=== PATIENT | female | born 1960 | race African-American/Black ===

== ENCOUNTER 2017-08-14 12:53 | Emergency (ER) | payer MEDICAID, OTHER ==
[~2017-08-14] VITALS: Ht 174 cm; Wt 81.6 kg
[~2017-08-14 12:53] MED LIST: ACETAMINOPHEN-1 EAC1 ORAL; ALBUTEROL SULF8.5 GM INH; ATORVASTATIN CA20 MG ORAL; BENAZEPRIL HCL10 MG PO; BENAZEPRIL HCL20 MG ORAL; CIPROFLOXACIN500 M2 ORAL; CLARITIN-D 241 EACH PO; CORTISPORIN EAR10 ML OTIC; COUGH SYRUP DM237 ML PO; CYCLOBENZAPRINE10 MG ORAL; DIFLUCAN100 MG ORAL; FLAGYL500 MG ORAL; FLONASE1 SPRAYS NASAL; IBUPROFEN600 MG PO; METRONIDAZOLE500 MG ORAL; MOTRIN IB200 MG PO; NORCO 5-325 TA1 EACH PO; PROAIR HFA8.5 GM INH; TAMIFLU75 MG ORAL; ZETIA10 MG PO; ZITHROMAX250 MG ORAL; ZYRTEC10 MG ORAL
[2017-08-14 13:10] VITALS: BP 175/92
--- NOTE | 2017-08-14 13:12 | Emergency Room Report ---
History of Present Illness General Chief Complaint: Abdominal Pain Source: Patient Present Illness HPI Patient presents with abdominal pain that's been colicky in nature since . She found that Pepto-Bismol works well to control the pain. Last time the pain was severe was this morning. It has been waking her up. It's mainly midline epigastric and radiates down to the lower part of the abdomen. She is status post hysterectomy. She denies any dysuria. There is no diarrhea. She had normal BM earlier. This started after eating spicy [place] food. More nausea than any vomiting. She has migraines and is very sensitive to medication. She states she has tylenol #3 but has not taken them for this pain. She has a mild headache at this time. She is on preventative medication for the migraines. She's also been treated for gastritis in the past. Allergies: Coded Allergies: MORPHINE (Verified Allergy, Severe, 05/13/15) PENICILLINS (Verified Allergy, Severe, BURNING, RASH, BURNING SKIN, ) AMPICILLIN (Verified Allergy, Intermediate, UTACARIA, RASH AND BURNING, ) NAPROXEN (Verified Allergy, Unknown, EDEMA, 03/01/15) DICLOFENAC SODIUM (Verified Adverse Reaction, Unknown, EDEMA, 03/01/15) OXYCODONE HCL (Verified Adverse Reaction, Unknown, TACHYCARDIA, 03/01/15) TRAMADOL (Verified Adverse Reaction, Unknown, HEADACHE, 03/01/15) Patient History Past Medical History: see triage record Past Surgical History: other - fx femur, breast augmentation Social History: Denies: smoking, alcohol use Social History Narrative at home Last Menstrual Period: n/a Reviewed Nursing Documentation: PMH: Agreed; PSxH: Agreed Nursing Documentation-PMH Past Medical History: No History, Except For Hx Cardiac Problems: Yes - HYPERCHOLESTEROLEMIA Hx Hypertension: Yes - arthritis, degenerative disease, right femur fx 1999 Hx Asthma: Yes Hx Cerebrovascular Accident: No - HYSTERECTOMY, BREAST AUGMENTATION Review of Systems All Other Systems: negative except mentioned in HPI Physical Exam Vital Signs Date Time Temp Pulse Resp B/P (MAP) Pulse Ox O2 Delivery O2 Flow Rate FiO2 08/14/17 12:56 98.0 76 18 175/92 96 Room Air 98.1 Sp02 EP Interpretation: reviewed, normal General Appearance: well appearing, no apparent distress, GCS 15 Head: normocephalic, atraumatic Eyes: bilateral eye normal inspection, bilateral eye PERRL, bilateral eye EOMI ENT: moist mucus membranes Neck: supple Respiratory: lungs clear, normal breath sounds Cardiovascular #1: regular rate, rhythm Cardiovascular #2: 2+ radial (R) Gastrointestinal: normal inspection, no mass, non-distended, no guarding, no rebound, tenderness - epigastric more than rest of abdomen Genitourinary: no CVA tenderness Musculoskeletal: back normal, gait/station normal, normal range of motion Neurologic: alert, oriented x3, grossly normal Psychiatric: mood/affect normal Skin: normal inspection, warm/dry Medical Decision Making Diagnostic Impression: Primary Impression: Abdominal pain Qualified Codes: R10.9 - Unspecified abdominal pain ER Course Patient presents with 4 days of intermittent abdominal pain - more epigastric but also radiating to lower abdomen. Ddx; gastroenteritis, gastritis, GERD, diverticulitis, UTI, pancreatitis amongst others. No diarrhea is against GItis. Evaluation with labs. Treatment with IV hydration, reglan, benadryla and pepcid. Pain does not sound cardiac and patient with few cardiac risk factors. Labs with normal WBC, H/H, CMP and lipase. Exam improved. Eating here. Discussed observation at home and treatment plan. Patient understands. Patient stable for outpatient observation and treatment. Laboratory Tests Test 08/14/17 13:45 White Blood Count 5.3 K/UL (4.8-10.8) Red Blood Count 4.70 M/UL (4.20-5.40) Hemoglobin 13.5 G/DL (12.0-16.0) Hematocrit 41.6 % (37.0-47.0) Mean Corpuscular Volume 89 FL (80-99) Mean Corpuscular Hemoglobin 28.6 PG (27.0-31.0) Mean Corpuscular Hemoglobin Concent 32.3 G/DL (32.0-36.0) Red Cell Distribution Width 12.5 % (11.6-14.8) Platelet Count 302 K/UL (150-450) Mean Platelet Volume 9.1 FL (6.5-10.1) Neutrophils (%) (Auto) 44.6 % (45.0-75.0) L Lymphocytes (%) (Auto) 45.9 % (20.0-45.0) H Monocytes (%) (Auto) 5.9 % (1.0-10.0) Eosinophils (%) (Auto) 1.7 % (0.0-3.0) Basophils (%) (Auto) 1.9 % (0.0-2.0) Urine Color Yellow Urine Appearance Clear Urine pH 6 (4.5-8.0) Urine Specific Sanderson 1.015 (1.005-1.035) Urine Protein Negative (NEGATIVE) Urine Glucose (UA) Negative (NEGATIVE) Urine Ketones Negative (NEGATIVE) Urine Occult Blood 1+ (NEGATIVE) H Urine Nitrite Negative (NEGATIVE) Urine Bilirubin Negative (NEGATIVE) Urine Urobilinogen Normal MG/DL (0.0-1.0) Urine Leukocyte Esterase Negative (NEGATIVE) Urine RBC 0-2 /HPF (0 - 2) Urine WBC 0-2 /HPF (0 - 2) Urine Squamous Epithelial Cells Few /LPF (NONE/OCC) Urine Bacteria Occasional /HPF (NONE) Sodium Level 139 MMOL/L (136-145) Potassium Level 3.8 MMOL/L (3.5-5.1) Chloride Level 107 MMOL/L (98-107) Carbon Dioxide Level 22 MMOL/L (21-32) Anion Gap 10 mmol/L (5-15) Blood Urea Nitrogen 11 mg/dL (7-18) Creatinine 0.9 MG/DL (0.55-1.30) Estimate Glomerular Filtration Rate > 60 mL/min (>60) Glucose Level 95 MG/DL (74-106) Calcium Level 9.6 MG/DL (8.5-10.1) Total Bilirubin 0.4 MG/DL (0.2-1.0) Aspartate Amino Transferase (AST) 13 U/L (15-37) L Alanine Aminotransferase (ALT) 17 U/L (12-78) Alkaline Phosphatase 52 U/L (46-116) Total Protein 7.8 G/DL (6.4-8.2) Albumin 3.7 G/DL (3.4-5.0) Globulin 4.1 g/dL Albumin/Globulin Ratio 0.9 (1.0-2.7) L Lipase 124 U/L (73-393) Last Vital Signs Date Time Temp Pulse Resp B/P (MAP) Pulse Ox O2 Delivery O2 Flow Rate FiO2 08/14/17 16:19 98.1 71 15 153/81 98 Room Air 98.1 Status: improved Disposition: HOME, SELF-CARE Condition: Improved Scripts Famotidine (PEPCID AC) 20 Mg Tablet 20 MG PO DAILY, #20 TAB Prov: Sotero Epperson M.D. 08/14/17 Ondansetron Odt* (ZOFRAN ODT*) 4 Mg Tab.rapdis 4 MG SL EVERY 8 HOURS, #6 TAB 1 Refill Prov: Sotero Epperson M.D. 08/14/17 Sotero Epperson M.D. Aug 14, 2017 13:12
[2017-08-14] MEDS ORDERED: DiphenhydrAMINE 50mg/ml Inj IVP ONE (13:15)
[2017-08-14] MEDS ORDERED: Metoclopramide 10mg/2ml Inj IVP ONE (13:15)
[2017-08-14 14:00] LABS: BASOPHILS % (AUTO) 1.9 % (0.0-2.0); EOSINOPHILS % (AUTO) 1.7 % (0.0-3.0); HEMATOCRIT 41.6 % (37.0-47.0); HEMOGLOBIN 13.5 G/DL (12.0-16.0); LYMPHOCYTES % (AUTO) 45.9 % (20.0-45.0); MEAN CORPUSCULAR VOLUME 89 FL (80-99); MONOCYTES % (AUTO) 5.9 % (1.0-10.0); NEUTROPHILS % (AUTO) 44.6 % (45.0-75.0); PLATELET COUNT 302 K/UL (150-450); RED CELL DISTRIBUTION WIDTH 12.5 % (11.6-14.8); WHITE BLOOD COUNT 5.3 K/UL (4.8-10.8)
[2017-08-14 14:02] LABS: APPEARANCE,URINE CLEAR; BILIRUBIN, URINE NEGATIVE (NEGATIVE); GLUCOSE, URINE (UA) NEGATIVE (NEGATIVE); KETONES,URINE NEGATIVE (NEGATIVE); LEUKOCYTE ESTERASE ,URINE NEGATIVE (NEGATIVE); NITRITE,URINE NEGATIVE (NEGATIVE); PH,URINE 6 (4.5-8.0); PROTEIN,URINE NEGATIVE (NEGATIVE); UROBILINOGEN,URINE NORMAL MG/DL (0.0-1.0)
[2017-08-14 14:09] LABS: ANION GAP 10 mmol/L (5-15); BLOOD UREA NITROGEN 11 mg/dL (7-18); CALCIUM 9.6 MG/DL (8.5-10.1); CARBON DIOXIDE 22 MMOL/L (21-32); CHLORIDE 107 MMOL/L (98-107); CREATININE 0.9 MG/DL (0.55-1.30); POTASSIUM 3.8 MMOL/L (3.5-5.1); SODIUM 139 MMOL/L (136-145)
[2017-08-14 14:13] LABS: COLOR,URINE YELLOW
[2017-08-14 14:14] LABS: ALANINE AMINOTRANSFERASE 17 U/L (12-78); ALBUMIN 3.7 G/DL (3.4-5.0); ALBUMIN/GLOBULIN RATIO 0.9 (1.0-2.7); ALKALINE PHOSPHATASE 52 U/L (46-116); ASPARTATE AMINO TRANSFERASE 13 U/L (15-37); BILIRUBIN,TOTAL 0.4 MG/DL (0.2-1.0)
[2017-08-14] MEDS ORDERED: Tylenol #3 tab (300mg/30mg) ORAL ONE (14:30)
[2017-08-14] MEDS ORDERED: PEPCID AC20 M2 PO (16:03)
[2017-08-14] MEDS ORDERED: ONDANSETRON ODT4 MG SL (16:03)
[2017-08-14 16:19] VITALS: BP 153/81
== END 2017-08-14 16:19 | disposition home or self-care (01) ==
LOC: EMR 15:27
DX: R10.9 Unspecified abdominal pain (principal); Z90.710 Acquired absence of both cervix and uterus; Z88.6 Allergy status to analgesic agent; Z88.0 Allergy status to penicillin; Z88.8 Allergy status to other drugs, medicaments and biological substances; E78.00 Pure hypercholesterolemia, unspecified; M19.90 Unspecified osteoarthritis, unspecified site
CPT/HCPCS: 36415; 80053; 81003; 83690; 85025; 96360; 96374; 96375; 99284; J1200; J2765; S0028

== ENCOUNTER 2017-09-09 14:28 | Emergency (ER) | payer MEDICAID ==
[~2017-09-09] VITALS: Ht 172.7 cm; Wt 81.6 kg
[~2017-09-09 14:28] MED LIST changes: +ONDANSETRON ODT4 MG SL; +PEPCID AC20 M2 PO
[2017-09-09] MEDS ORDERED: MONTELUKAST SOD10 MG ORAL (14:54)
[2017-09-09] MEDS ORDERED: ACETAMINOPHEN-1 EAC1 ORAL (14:55)
[2017-09-09] MEDS ORDERED: PREMARIN0.625 MG ORAL (14:55)
[2017-09-09 14:56] VITALS: BP 148/83
[2017-09-09] MEDS ORDERED: LIDOCAINE700 M1 TP (15:12)
[2017-09-09 15:20] VITALS: BP 148/83
--- NOTE | 2017-09-09 15:23 | Emergency Room Report ---
History of Present Illness General Chief Complaint: General Complaint Source: Patient, Medical Record Present Illness HPI Patient's 57-year-old female who presents after increased right-sided chest discomfort. The patient reports having worsening pain to the right side of her chest. Initially this had been bilateral pain which began after working out with weights. The patient states that she been having increased sharp pain which was worse with movements. She reports having prior history of arthritis as well as prior diagnosis of rheumatism. She reports having negative mammograms in the past. Allergies: Coded Allergies: MORPHINE (Verified Allergy, Severe, 05/13/15) PENICILLINS (Verified Allergy, Severe, BURNING, RASH, BURNING SKIN, ) AMPICILLIN (Verified Allergy, Intermediate, UTACARIA, RASH AND BURNING, ) NAPROXEN (Verified Allergy, Unknown, EDEMA, 03/01/15) DICLOFENAC SODIUM (Verified Adverse Reaction, Unknown, EDEMA, 03/01/15) OXYCODONE HCL (Verified Adverse Reaction, Unknown, TACHYCARDIA, 03/01/15) TRAMADOL (Verified Adverse Reaction, Unknown, HEADACHE, 03/01/15) Patient History Past Medical History: see triage record Last Menstrual Period: partial hystrectomy Reviewed Nursing Documentation: PMH: Agreed; PSxH: Agreed Nursing Documentation-PMH Past Medical History: No History, Except For Hx Cardiac Problems: Yes - HYPERCHOLESTEROLEMIA Hx Hypertension: Yes - arthritis, degenerative disease, right femur fx 1999 Hx Pacemaker: No Hx Asthma: Yes Hx COPD: No Hx Diabetes: No Hx Cancer: No Hx Gastrointestinal Problems: No Hx Dialysis: No History Of Psychiatric Problem: No Hx Neurological Problems: No Hx Cerebrovascular Accident: No - HYSTERECTOMY Hx Seizures: No Review of Systems All Other Systems: negative except mentioned in HPI Physical Exam Vital Signs Date Time Temp Pulse Resp B/P (MAP) Pulse Ox O2 Delivery O2 Flow Rate FiO2 09/09/17 14:47 98.1 70 16 148/83 97 Room Air 98.1 Sp02 EP Interpretation: reviewed, normal General Appearance: normal inspection, well appearing, no apparent distress, alert, GCS 15, non-toxic Head: atraumatic ENT: normal ENT inspection, hearing grossly normal, normal voice Neck: normal inspection, full range of motion, supple, no bony tend Respiratory: normal inspection, lungs clear, normal breath sounds, no respiratory distress, no retraction, no wheezing Cardiovascular #1: regular rate, rhythm, no edema, other - left chest wall tenderness. Gastrointestinal: normal inspection, normal bowel sounds, non tender, soft, no guarding, no hernia Genitourinary: no CVA tenderness Musculoskeletal: normal inspection, back normal, normal range of motion Neurologic: normal inspection, alert, responsive, speech normal Psychiatric: normal inspection, judgement/insight normal, mood/affect normal Skin: normal inspection, normal color, no rash Medical Decision Making Diagnostic Impression: Primary Impression: Chest wall pain ER Course Patient presented for chest pain. Differential diagnosis included but was not limited to acute coronary syndrome, pulmonary embolism, pneumonia, aortic dissection, shingles, pneumothorax, aortic dissection, esophageal rupture, pericarditis. Patient has a benign exam and does not appear to require any further imaging or laboratory testing at this time. The patient appears to have the chest wall pain. The patient was given lidocaine patch. The patient for pain medications. The patient denies any recent leg pain or swelling. The patient is advised to return if she began having worsening of symptoms fever or other concerns. The patient is advised to follow up with primary care doctor in 1-2 days. Patient is advised to return if any worsening condition or if any changes in status that are concerning. This report is dictated with [employer] power superintendent software which may occasionally lead to discrepancies related to use of this software. Last Vital Signs Date Time Temp Pulse Resp B/P (MAP) Pulse Ox O2 Delivery O2 Flow Rate FiO2 09/09/17 14:56 98.1 70 16 148/83 100 Room Air 98.1 Status: improved Disposition: HOME, SELF-CARE Condition: Stable Scripts Lidocaine (Lidocaine) 1 Each Adh..patch 5 % TP DAILY for pain, #30 PATCH Prov: Ramo Biggs MD 09/09/17 Patient Instructions: Chest Wall Pain, [id number] Ramo Biggs MD Sep 09, 2017 15:23
== END 2017-09-09 15:20 | disposition home or self-care (01) ==
LOC: EMR 14:30
DX: R07.89 Other chest pain (principal); Z90.710 Acquired absence of both cervix and uterus; Z88.6 Allergy status to analgesic agent; E78.00 Pure hypercholesterolemia, unspecified; I10 Essential (primary) hypertension; J45.909 Unspecified asthma, uncomplicated; M19.90 Unspecified osteoarthritis, unspecified site
CPT/HCPCS: 99283

== ENCOUNTER 2017-12-13 10:20 | Emergency (ER) | payer MEDICAID ==
[~2017-12-13] VITALS: Ht 167.6 cm; Wt 81.6 kg
[~2017-12-13 10:20] MED LIST changes: +LIDOCAINE700 M1 TP; +MONTELUKAST SOD10 MG ORAL; +PREMARIN0.625 MG ORAL
[2017-12-13 10:40] VITALS: BP 157/89
[2017-12-13] MEDS ORDERED: Fluorescein Strips LEFT EYE ONE (10:45)
[2017-12-13] MEDS ORDERED: Tetracaine 0.5% Opth 4ml Soln LEFT EYE ONE (10:45)
[2017-12-13] MEDS ORDERED: OCUFLOX5 ML LEFT EYE (11:21)
[2017-12-13 11:29] VITALS: BP 157/89
--- NOTE | 2017-12-14 07:07 | Emergency Room Report ---
History of Present Illness General Chief Complaint: Eye Problems Source: Patient Present Illness HPI 57-year-old female presents to ED complaining of left eye injury. States that when she was combing her hair this morning she scratched her left eye with her thumb. Notes tearing and pain to her left eye. Dull, 8 out of 10, nonradiating. Denies diplopia or blurry vision. Feels like there is something in her eye. Denies any other injuries. No other aggravating relieving factors. Denies any other associated symptoms Allergies: Coded Allergies: MORPHINE (Verified Allergy, Severe, 05/13/15) PENICILLINS (Verified Allergy, Severe, BURNING, RASH, BURNING SKIN, ) AMPICILLIN (Verified Allergy, Intermediate, UTACARIA, RASH AND BURNING, ) NAPROXEN (Verified Allergy, Unknown, EDEMA, 03/01/15) DICLOFENAC SODIUM (Verified Adverse Reaction, Unknown, EDEMA, 03/01/15) OXYCODONE HCL (Verified Adverse Reaction, Unknown, TACHYCARDIA, 03/01/15) TRAMADOL (Verified Adverse Reaction, Unknown, HEADACHE, 03/01/15) Patient History Past Medical History: asthma Past Surgical History: none, other - femur fx Pertinent Family History: none Social History: Denies: smoking, alcohol use, drug use Now: No Immunizations: UTD Reviewed Nursing Documentation: PMH: Agreed; PSxH: Agreed Nursing Documentation-PMH Past Medical History: No History, Except For Hx Cardiac Problems: Yes - HYPERCHOLESTEROLEMIA Hx Hypertension: Yes - arthritis, degenerative disease, right femur fx 1999 Hx Pacemaker: No Hx Asthma: Yes Hx COPD: No Hx Diabetes: No Hx Cancer: No Hx Gastrointestinal Problems: No Hx Dialysis: No Hx Neurological Problems: No Hx Cerebrovascular Accident: No - HYSTERECTOMY Hx Seizures: No Review of Systems All Other Systems: negative except mentioned in HPI Physical Exam Vital Signs Date Time Temp Pulse Resp B/P (MAP) Pulse Ox O2 Delivery O2 Flow Rate FiO2 12/13/17 10:31 98.0 89 17 157/89 98 Room Air 98.1 Sp02 EP Interpretation: reviewed, normal General Appearance: no apparent distress, alert, GCS 15, non-toxic Head: normocephalic Eyes: left eye fluoroscene uptake - corneal abrasion; bilateral eye normal inspection, bilateral eye PERRL, bilateral eye EOMI, bilateral eye visual acuity ENT: normal ENT inspection Neck: normal inspection Respiratory: normal inspection Cardiovascular #1: normal inspection Gastrointestinal: normal inspection Rectal: deferred Genitourinary: no CVA tenderness Musculoskeletal: normal inspection Neurologic: alert, oriented x3, responsive, motor strength/tone normal, sensory intact, speech normal Psychiatric: normal inspection Skin: normal inspection Lymphatic: normal inspection Medical Decision Making Diagnostic Impression: Primary Impression: Corneal abrasion Qualified Codes: S05.02XA - Injury of conjunctiva and corneal abrasion without foreign body, left eye, initial encounter ER Course Hospital Course 57-year-old female presents to ED with left eye pain, hit eye with her thumb Differential diagnoses include: conjunctivitis, traumatic iritis, foreign body, corneal abrasion Clinical course Patient placed on stretcher. After initial history, I applied tetracaine and Fluorescin to the affected eye. Using Wood's lamp I examined the eyes, I see a corneal abrasion. I inverted eyelid and saw no evidence of foreign body. Discussed findings with the patient. We will prescribe Ocuflox. I will provide Optho referral for the patient as well. Diagnosis - corneal abrasion Stable and discharged to home with prescription for Ocuflox. Followup with PMD/ Optho. Return to ED if symptoms recur or worsen Last Vital Signs Date Time Temp Pulse Resp B/P (MAP) Pulse Ox O2 Delivery O2 Flow Rate FiO2 12/13/17 11:29 98.1 89 17 157/89 98 Room Air 98.1 Status: improved Disposition: HOME, SELF-CARE Condition: Stable Scripts Ofloxacin (OCUFLOX) 5 Ml Drops 1 DROP LEFT EYE QID for 7 Days, ML Prov: Rodo Frances MD 12/13/17 Referrals: Jose De Leon M.D., MD Patient Instructions: Corneal Abrasion, [id number] Rodo Frances MD Dec 14, 2017 07:07
== END 2017-12-13 11:29 | disposition home or self-care (01) ==
LOC: EMR 10:52
DX: S05.02XA Injury of conjunctiva and corneal abrasion without foreign body, left eye, initial encounter (principal); X58.XXXA Exposure to other specified factors, initial encounter; Y93.89 Activity, other specified; Y92.019 Unspecified place in single-family (private) house as the place of occurrence of the external cause; I10 Essential (primary) hypertension; E78.00 Pure hypercholesterolemia, unspecified
CPT/HCPCS: 99282